=== PATIENT | female | born 1980 | race American Indian/Alaskan Native ===

== ENCOUNTER 2017-08-23 05:57 | Day surgery (SDC) | payer MEDICARE ==
[2017-08-23] MEDS ORDERED: NACL 0.9% 1000 ML 1,000 ML ONE (07:01)
[2017-08-23] MEDS ORDERED: WATER FOR IRRIG STERILE IR ONE (07:12)
[2017-08-23] MEDS ORDERED: DIPRIVAN 10 MG/ML IV ONE ×2 (07:20)
--- NOTE | 2017-08-23 07:28 | Anesthesia Day of Surgery ---
Anesthesia Day of Surgery - Day of Surgery Patient Examined: Yes Patient H&P Reviewed: Yes Patient is NPO: Yes
--- NOTE | 2017-08-23 07:28 | Anesthesia Consultation ---
Anesthesia Consult and Med Hx Date of service: 08/23/17 - Airway Anesthetic Teeth Evaluation: Good ROM Head & Neck: Adequate Mental/Hyoid Distance: Adequate Mallampati Class: Class II Intubation Access Assessment: Probably Good - Pre-Operative Health Status ASA Pre-Surgery Classification: ASA3 Proposed Anesthetic Plan: MAC - Pulmonary Hx Smoking: No Hx Asthma: No COPD: No Hx Pneumonia: No Hx Sleep Apnea: Yes - Cardiovascular System Hx Hypertension: No - Central Nervous System Hx Seizures: No Hx Psychiatric Problems: Yes (depression) - Endocrine Hx Renal Disease: No Hx End Stage Renal Disease: No Hx Hypothyroidism: No Hx Hyperthyroidism: No - Hematic Hx Anemia: No Hx Sickle Cell Disease: No - Other Systems Hx Alcohol Use: No Hx Cancer: No Hx Obesity: Yes (BMI 60.7)
[2017-08-23] MEDS ORDERED: HURRICAINE ONE 20% TOPICAL SPRAY MM ×2 (07:32→07:33)
--- NOTE | 2017-08-23 07:46 | Discharge Summary ---
Providers - Providers Attending physician: CONCEPCION LEONARD Primary care physician: ELIZABET LINDO Hospitalization Procedures: EGD Hospital course: 37 y.o. F presented to endoscopy for EGD. She tolerated the procedure well. Disposition: - TO HOME OR SELFCARE Core Measure Documentation - Palliative Care Palliative Care/ Comfort Measures: Not Applicable - Core Measures Any of the following diagnoses?: none Exam - Physical Exam Narrative exam: no changes from prior - Constitutional Vitals: Temp Pulse Resp BP Pulse Ox 98.2 F 85 15 135/80 97 08/23/17 07:30 08/23/17 07:30 08/23/17 07:30 08/23/17 07:30 08/23/17 07:30 Plan Activity: no restrictions Diet: other (2 week protein diet, 2 days prior to surgery clears) Follow up with: ELIZABET LINDO MD [Primary Care Provider] - 7 Days
--- NOTE | 2017-08-23 07:57 | Operative Report ---
Operative Report Operative Report: OPERATIVE REPORT - EGD DATE 08/23/17 SURGERY: Upper endoscopy. SURGEON: Kayla Mckeon M.D. PRE OP DX: dyspepsia POST OP DX: gastritis, hiatal hernia TYPE OF ANESTHESIA: MAC. ESTIMATED BLOOD LOSS: None. COMPLICATIONS: None. SPECIMENS REMOVED: None. FINDINGS: 1. Small hiatal hernia. 2. antral gastritis INDICATIONS:INDICATION FOR PROCEDURE: Patient is a 46-year-old female with a long history of morbid obesity. She is planned to have a weight loss procedure and is here for preoperative planning EGD. PROCEDURE DETAILS: After consent was reviewed, patient was taken back to the operating room where patient was placed in the left lateral decubitus position and a bite block was placed in the mouth. After a time-out was called, MAC anesthesia was initiated. I then passed the endoscope into her oropharynx, into her esophagus, visualized the entire esophagus, which was all within normal limits. I then visualized the stomach and the first portion of the duodenum and there were no abnormalities I could clearly visualize, with the exception of mild antral gastritis. I then retroflexed the scope in the stomach and visualized the hiatus and I could see a small hiatal hernia. I then desufflated the stomach and removed the endoscope. Patient tolerated procedure well and was transferred to recovery room in good and stable condition.
[2017-08-23] MEDS ORDERED: NACL 0.9% 1000 ML 1,000 ML IV SCH (08:00)
--- NOTE | 2017-08-23 08:01 | Post Anesthesia Evaluation ---
- Post Anesthesia Evaluation Patient Participated: Yes Airway Patent: Yes Stable Respiratory Function: Yes Nausea/Vomiting: No Temp > 96.8F: Yes Pain Manageable: Yes Adequeate Hydration: Yes Anesthesia Complications: No Block Receding Appropriately: Not Applicable Patient on Ventilator: No
[2017-08-23 08:22] VITALS: BP 116/60
[2017-08-23] MEDS ORDERED: XYLOCAINE MPF 2% ONE (10:00)
== END 2017-08-23 05:58 | disposition home or self-care (01) ==
LOC: GIO 05:57
PROVIDERS: ATTEND Surgery
DX: K29.70 Gastritis, unspecified, without bleeding (principal); K44.9 Diaphragmatic hernia without obstruction or gangrene; E66.01 Morbid (severe) obesity due to excess calories; E66.9 Obesity, unspecified; F32.9 Major depressive disorder, single episode, unspecified; G47.30 Sleep apnea, unspecified; Z99.89 Dependence on other enabling machines and devices; Z68.44 Body mass index [BMI] 60.0-69.9, adult
CPT/HCPCS: 43235; 81025; J2704; J7030

== ENCOUNTER 2018-08-28 11:35 | Inpatient (IN) | payer MEDICARE, OTHER ==
[2018-08-28] MEDS ORDERED: STADOL IV PRN (14:00)
[2018-08-28] MEDS ORDERED: BRETHINE SUB-Q PRN (14:00)
[2018-08-28] MEDS ORDERED: BRETHINE IVP PRN (14:00)
[2018-08-28] MEDS ORDERED: LACTATED RINGERS 1,000 ML IV SCH (14:00)
[2018-08-28] MEDS ORDERED: SUBLIMAZE IV PRN (14:00)
[2018-08-28] MEDS ORDERED: MINERAL OIL PO PRN (14:00)
[2018-08-28] MEDS ORDERED: XYLOCAINE 2% INFILTRATI ONE (15:00)
[2018-08-28] MEDS ORDERED: PITOCin/NS 30 UNIT/500ML 30 UNITS/500 ML BAG IV SCH (15:00)
[2018-08-28] MEDS ORDERED: AMPICILLIN/NS 2 GM/100 ML 2 GM/100 ML BAG IV ONE (15:00)
[2018-08-28] MEDS ORDERED: PITOCin/NS 20 UNIT/1000ML DRIP 20 UNITS/1,000 ML BAG IV SCH (15:00)
--- NOTE | 2018-08-28 16:38 | History and Physical Report ---
History of Present Illness Date of examination: 08/28/18 Date of admission: 08/28/18 Chief complaint: srom and contractions History of present illness: This is a 38 yo G 9P4 at 40+4 weeks here for leaking and contractions. She is a patient of [facility]. Unremarkable care. hx of hsv on valtrex no report of outbreaks Past History Past Medical History: no pertinent history Past Surgical History: no surgical history [employer] History: herpes Family/Genetic History: none Social history: . denies: smoking, alcohol abuse, prescription drug abuse - Obstetrical History Expected Date of Delivery: 08/24/18 Actual Gestation: 40 Week(s) 4 Day(s) : 9 Para: 4 Hx # Term Pregnancies: 4 Number of Pregnancies: 0 Spontaneous Abortions: 5 Induced : 0 Number of Living Children: 4 Medications and Allergies Allergies Allergy/AdvReac Type Severity Reaction Status Date / Time No Known Allergies Allergy Verified 08/30/17 14:00 Home Medications Medication Instructions Recorded Confirmed Last Taken Type Vilazodone HCl [Viibryd] 1 tab PO BID 08/23/17 08/28/18 08/28/18 10:00 History 1 Active Meds: Active Medications Butorphanol Tartrate (Stadol) 2 mg IV Q2H PRN PRN Reason: Pain , Severe (7-10) Ephedrine Sulfate (Ephedrine Sulfate) 10 mg IV Q2M PRN PRN Reason: Hypotension Fentanyl (Sublimaze) 100 mcg IV Q2H PRN PRN Reason: Labor Pain Last Admin: 08/28/18 16:05 Dose: 100 mcg Documented by: Lactated Ringer's (Lactated Ringers) 1,000 mls @ 125 mls/hr IV DIRECT SHARON Last Admin: 08/28/18 15:17 Dose: 125 mls/hr Documented by: Oxytocin/Sodium Chloride (Pitocin/Ns 20 Unit/1000ml Drip) 20 units in 1,000 mls @ 125 mls/hr IV DIRECT SHARON Oxytocin/Sodium Chloride (Pitocin/Ns 30 Unit/500ml) 30 units in 500 mls @ 1 mls/hr IV TITR SHARON; Protocol Last Admin: 08/28/18 16:00 Dose: 2 milliunits/min, 2 mls/hr Documented by: Mineral Oil (Mineral Oil) 30 ml PO QHS PRN PRN Reason: Constipation Terbutaline Sulfate (Brethine) 0.25 mg SUB-Q ONCE PRN PRN Reason: Hyperstimulation/Hypertonicity Terbutaline Sulfate ([place]) 0.25 mg IVP ONCE PRN PRN Reason: Hyperstimulation/Hypertonicity Review of Systems All systems: negative Genitourinary: leakage of fluid - Vital Signs Vital signs: Vital Signs Temp 99.1 F 08/28/18 15:41 Temp Pulse Resp BP Pulse Ox 99.1 F 08/28/18 15:41 - Physical Exam Breasts: Positive: normal Cardiovascular: Regular rate, Normal S1 Lungs: Positive: Clear to auscultation, Normal air movement Abdomen: Positive: normal appearance, soft, normal bowel sounds. Negative: distention, tenderness, guarding Genitourinary (Female): Positive: normal external genitalia, normal perenium Vagina: Positive: normal moisture Uterus: Positive: normal size Deep Tendon Reflex Grade: Normal +2 - Obstetrical FHR: category 1 Cervical Dilatation: 3 Cervical Effacement Percentage: 100 station: 2 Uterine Contraction Pattern: Irregular Uterine Tone Measurement Phase: Contraction Uterine Contraction Intensity: Mild Results All other labs normal. Assessment and Plan A/P Term srom IVF, labs offer epidural expect vaginal delivery
[2018-08-28 17:14] LABS: Hematocrit 33.4 % (30.3-42.9); Hemoglobin 10.8 gm/dl (10.1-14.3); Mean Platelet Volume 7.8 fl (6-12); Red Blood Count 3.8 M/mm3 (3.65-5.03); Red Cell Distribution Width 13.2 % (13.2-15.2)
[2018-08-28] MEDS ORDERED: NARCAN 2 MG/2 ML IV PRN (17:50)
--- NOTE | 2018-08-28 17:50 | Anesthesia Consultation ---
Anesthesia Consult and Med Hx Date of service: 08/28/18 - Airway Anesthetic Teeth Evaluation: Good ROM Head & Neck: Adequate Mental/Hyoid Distance: Adequate Mallampati Class: Class II Intubation Access Assessment: Probably Good - Pre-Operative Health Status ASA Pre-Surgery Classification: ASA2 Proposed Anesthetic Plan: Epidural, Spinal - Pulmonary Hx Smoking: No Hx Asthma: No COPD: No Hx Pneumonia: No Hx Sleep Apnea: Yes - Cardiovascular System Hx Hypertension: No - Central Nervous System Hx Seizures: No Hx Psychiatric Problems: No - Endocrine Hx Renal Disease: No Hx End Stage Renal Disease: No Hx Hypothyroidism: No Hx Hyperthyroidism: No - Hematic Hx Anemia: No Hx Sickle Cell Disease: No - Other Systems Hx Alcohol Use: No Hx Cancer: No Hx Obesity: Yes (BMI 36.6)
[2018-08-28] MEDS ORDERED: BENADRYL PO PRN (18:56)
[2018-08-28] MEDS ORDERED: PERCOCET 5/325 PO PRN (18:56)
[2018-08-28] MEDS ORDERED: PHENERGAN PO PRN (18:56)
[2018-08-28] MEDS ORDERED: NORCO 5/325 PO PRN (18:56)
[2018-08-28] MEDS ORDERED: DULCOLAX PR PRN (18:56)
[2018-08-28] MEDS ORDERED: PHENERGAN PR PRN (18:56)
[2018-08-28] MEDS ORDERED: TYLENOL PO PRN (18:56)
[2018-08-28] MEDS ORDERED: TUCKS PAD TP PRN (18:56)
[2018-08-28] MEDS ORDERED: MILK OF MAGNESIA PO PRN (18:56)
[2018-08-28] MEDS ORDERED: ZOFRAN IV PRN (18:56)
[2018-08-28] MEDS ORDERED: LANSINOH TP PRN (18:56)
[2018-08-28] MEDS ORDERED: SODIUM CHLORIDE FLUSH SYRINGE 10 ML IV NR (19:00)
[2018-08-28] MEDS ORDERED: fentaNYL-BUPIV 2 MCG/ML-0.125% 200 MCG/100 ML BAG EPIDURAL SCH (19:00)
--- NOTE | 2018-08-28 19:06 | Procedure Note ---
OB Delivery Note - Delivery Date of Delivery: 08/28/18 Surgeon: JB GARCIA Estimated blood loss: 300cc - Vaginal Delivery presentation: vertex Delivery position: OA Intrapartum events: meconium Delivery augmentation: rupture of membranes, pitocin Delivery monitor: external FHT, external uterine Route of delivery: Delivery placenta: spontaneous Delivery cord: nuchal cord, 3 umbilical vessels Episiotomy: none Delivery laceration: none Anesthesia: none Delivery comments: Patient was noted to c/c/ +1 and commenced to pushing a viable Male at 1836. The baby delivered after a loose nuchal cord reduced with easily delivery. The placenta delivered intact with 3 vessel cord at 1845. The apgars were 3 and 7 . Weight of baby 7 pounds 5 oz. No lacs. Patient tolerated procedure well. EBl 300 cc. Patient bonded with baby. - A at 1 minute: 3 at 5 minutes: 7 Infant Gender: Male
[2018-08-28] MEDS: PITOCin/NS 20 UNIT/1000ML DRIP 20 UNITS/1,000 ML BAG IV SCH ×2 (20:14→20:23)
[2018-08-28] MEDS: IBUPROFEN PO SCH (23:52)
[2018-08-28] MEDS: FEOSOL PO SCH (23:53)
[2018-08-28] MEDS: COLACE PO SCH (23:53)
[2018-08-29] MEDS: FEOSOL PO SCH ×3 (01:23→22:15)
[2018-08-29] MEDS: SENOKOT S PO SCH ×2 (01:43→14:52)
[2018-08-29] MEDS ORDERED: M-M-R II VACCINE SUB-Q ONE (06:00)
[2018-08-29] MEDS ORDERED: BOOSTRIX IM ONE (06:00)
[2018-08-29] MEDS: IBUPROFEN PO SCH ×4 (06:19→23:52)
[2018-08-29 07:00] LABS: Hematocrit 27.1 % (30.3-42.9); Hemoglobin 8.9 gm/dl (10.1-14.3)
--- NOTE | 2018-08-29 08:44 | Progress Note ---
Assessment and Plan - Patient Problems (1) Spontaneous vaginal delivery Current Visit: No Status: Acute Plan to address problem: routine care Subjective - Subjective Date of service: 08/29/18 Interval history: Patient without complaints. Bonding with patient. Nursing reports she dropped the baby. Infant being evaluated by peds. Patient reports: appetite normal, voiding normally, pain well controlled Objective - Vital Signs Latest vital signs: Vital Signs Temp Pulse Resp BP BP Pulse Ox 08/29/18 04:33 97.7 F 82 20 105/68 98 08/28/18 22:04 98.5 F 92 H 20 120/73 97 08/28/18 20:10 83 115/63 08/28/18 19:01 96.5 F L 104 H 20 107/55 107/55 08/28/18 15:41 99.1 F Intake and Output 08/28/18 08/29/18 08/29/18 22:59 06:59 14:59 Intake Total 37.5 Balance 37.5 Intake: IV 37.5 PITOCin/NS 20 UNIT/1000ML 37.5 DRIP 20 units In 1,000 ml @ 250 mls/hr IV DIRECT SHARON Rx#:[id number] Other: Estimated Blood Loss 300 - Exam Uterus: Present: normal, firm - Labs Labs: Abnormal lab results 08/29/18 Range/Units 05:46 Hgb 8.9 L (10.1-14.3) gm/dl Hct 27.1 L D (30.3-42.9) %
--- NOTE | 2018-08-29 08:46 | Discharge Summary ---
Providers - Providers Date of Admission: 08/28/18 11:36 Date of discharge: 08/30/18 Attending physician: JB GARCIA MD Primary care physician: JB GARCIA MD Hospitalization Reason for admission: active labor, rupture of membranes Delivery: Discharge diagnosis: IUP at term delivered Hospital course: Patient admitted with +Srom. Had a . complicated by the patient dropping the baby. Condition at discharge: Good Disposition: DC-01 TO HOME OR SELFCARE - Discharge Diagnoses (1) Spontaneous vaginal delivery Status: Acute Plan - Discharge Medications Prescriptions: Ferrous Sulfate 325 mg PO BID #60 tablet. HYDROcodone/ACETAMINOPHEN [[place] 5-325 Tablet] 1 each PO Q6H PRN #20 tablet PRN Reason: Pain, Mild (1-3) Ibuprofen [Motrin] 600 mg PO Q8H PRN #30 tablet PRN Reason: Pain Ibuprofen [Motrin] 800 mg PO Q8HR PRN #60 tablet PRN Reason: pain oxyCODONE /ACETAMINOPHEN [Percocet 5/325] 1 tab PO Q6HR PRN #30 tablet PRN Reason: Pain - Provider Discharge Summary Activity: no sex for 6 weeks, no heavy lifting 4 weeks, no strenuous exercise Diet: routine Instructions: routine Additional instructions: [] Smoking cessation referral if applicable(refer to patient education folder for contact #) [] Refer to [facility] Booklet Call your doctor immediately for: * Fever > 100.5 * Heavy vaginal bleeding ( >1 pad per hour) * Severe persistent headache * Shortness of breath * Reddened, hot, painful area to leg or breast * schedule visit in 4 weeks - Follow up plan
[2018-08-29] MEDS: COLACE PO SCH ×2 (10:02→22:15)
[2018-08-29] MEDS: PRENATAL VITAMIN PO SCH (14:52)
[2018-08-30] MEDS: SENOKOT S PO SCH ×2 (02:33→11:47)
[2018-08-30] MEDS: IBUPROFEN PO SCH ×2 (05:43→11:48)
[2018-08-30] MEDS: PRENATAL VITAMIN PO SCH (11:46)
[2018-08-30] MEDS: COLACE PO SCH (11:47)
[2018-08-30 16:36] VITALS: BP 113/73
== END 2018-08-30 12:00 | disposition home or self-care (01) | DRG 806 ==
LOC: LD 11:35 → TRG 11:35 → LD 11:36 → TRG 16:45 → OB 20:55
PROVIDERS: ADMIT Obstetrics & Gynecology; ATTEND Obstetrics & Gynecology
PROC: 10E0XZZ Delivery of Products of Conception, External Approach (ICD-10-PCS; principal; 2018-08-28)
PROC: 3E0234Z Introduction of Serum, Toxoid and Vaccine into Muscle, Percutaneous Approach (ICD-10-PCS; 2018-08-29)
DX: O77.0 Labor and delivery complicated by meconium in amniotic fluid (principal); D62 Acute posthemorrhagic anemia; Z37.0 Single live birth; Z3A.40 40 weeks gestation of pregnancy; O99.214 Obesity complicating childbirth; E66.9 Obesity, unspecified; O69.81X0 Labor and delivery complicated by cord around neck, without compression, not applicable or unspecified; Z23 Encounter for immunization
CPT/HCPCS: 36415; 85014; 85018; 85027; 86592; 86850; 86900; 86901; 88307; G0378; J0290; J2590; J3010; J7120

== ENCOUNTER 2019-01-09 10:49 | Emergency (ER) | payer MEDICARE, OTHER ==
--- NOTE | 2019-01-09 11:12 | Event Note ---
ED Screening Note ED Screening Note: pt is c/o periumbilical abdominal pain for a week increased gas lower back pain intermittent N/V no diarrhea had a BM yesterday no urinary sx PSHx of gastric bypass ([facility]-en-y) september 2016 none PMHx no daily meds no allergies to meds This initial assessment/diagnostic orders/clinical plan/treatment(s) is/are subject to change based on patients health status, clinical progression and re- assessment by fellow clinical providers in the ED. Further treatment and workup at subsequent clinical providers discretion. Patient/guardian urged not to elope from the ED as their condition may be serious if not clinically assessed and managed. Initial orders include: labs, UA, urine preg
[2019-01-09] MEDS ORDERED: TORADOL IM ONE (11:45)
[2019-01-09] MEDS ORDERED: ZOFRAN IM ONE (11:45)
[2019-01-09 12:06] LABS: HCG Qualitative,Urine Negative (Negative)
[2019-01-09 12:13] LABS: Bilirubin,Urine NEG (Negative); Blood,Urine LG (Negative); Calcium Oxalate Crystals,Urine 3+; Color,Urine Yellow (Yellow); Mucus,Urine 2+ /HPF; Urobilinogen,Urine < 2.0 mg/dL (<2.0)
[2019-01-09 12:23] LABS: RBC,Urine > 182.0 /HPF (0.0-6.0)
[2019-01-09 12:38] LABS: Alanine Aminotransferase 13 units/L (7-56); Albumin 3.4 g/dL (3.9-5); BUN/Creatinine Ratio 15; Blood Urea Nitrogen 9 mg/dL (7-17); Calcium 8.5 mg/dL (8.4-10.2); Hemolysis Index 5
[2019-01-09 12:39] LABS: Basophils % (Auto) 0.6 % (0.0-1.8); Eosinophils # (Auto) 0.2 K/mm3 (0.0-0.4); Hematocrit 29.8 % (30.3-42.9); Hemoglobin 9.6 gm/dl (10.1-14.3); Lymphocytes # (Auto) 1.5 K/mm3 (1.2-5.4); Lymphocytes % (Auto) 43.9 % (13.4-35.0); Mean Corpuscular HGB Conc 32 % (30-34); Mean Corpuscular Volume 80 fl (79-97); Monocytes # (Auto) 0.3 K/mm3 (0.0-0.8); Monocytes % (Auto) 8.1 % (0.0-7.3); Platelet Count 332 K/mm3 (140-440); Red Blood Count 3.73 M/mm3 (3.65-5.03); Red Cell Distribution Width 16.7 % (13.2-15.2)
--- NOTE | 2019-01-09 13:14 | Emergency Department Report ---
ED Abdominal Pain HPI - General Chief Complaint: Abdominal Pain Stated Complaint: ABDOMINAL/BACK PAIN Time Seen by Provider: 01/09/19 11:10 Source: patient Mode of arrival: Ambulatory Limitations: No Limitations - History of Present Illness Initial Comments: Patient is a 38-year-old female who's had some lower abdominal discomfort and some lower back pain for approximately 1 week. Patient states that she is currently on her menses however the pain is not changed before or after her menses started. Patient states her flow is normal for her. Patient is 4 months . Patient had some nausea vomiting several days ago but this is improved. She denies any diarrhea fevers chills cough cold or congestion. Patient states has been no dysuria or urinary frequency. Severity scale (0 -10): 3 - Related Data Home Medications Medication Instructions Recorded Confirmed Last Taken Vilazodone HCl [Viibryd] 1 tab PO BID 08/23/17 08/28/18 08/28/18 10:00 1 Previous Rx's Medication Instructions Recorded Last Taken Type Ferrous Sulfate 325 mg PO BID #60 tablet. 08/28/18 Unknown Rx Ibuprofen [Motrin] 600 mg PO Q8H PRN #30 tablet 08/28/18 Unknown Rx oxyCODONE /ACETAMINOPHEN [Percocet 1 tab PO Q6HR PRN #30 tablet 08/28/18 Unknown Rx 5/325] HYDROcodone/ACETAMINOPHEN [[place] 1 each PO Q6H PRN #20 tablet 08/29/18 Unknown Rx 5-325 Tablet] Ibuprofen [Motrin] 800 mg PO Q8HR PRN #60 tablet 08/29/18 Unknown Rx Ibuprofen [Motrin 600 MG tab] 600 mg PO Q8H PRN #20 tablet 01/09/19 Unknown Rx Nitrofurantoin [place]/M-Cryst 100 mg PO Q12HR #14 capsule 01/09/19 Unknown Rx [Macrobid CAP] Ondansetron [Zofran Odt] 4 mg PO Q8HR #10 tab.rapdis 01/09/19 Unknown Rx traMADol [Ultram] 50 mg PO Q6HR PRN #7 tablet 01/09/19 Unknown Rx Allergies Allergy/AdvReac Type Severity Reaction Status Date / Time No Known Allergies Allergy Verified 08/30/17 14:00 ED Review of Systems ROS: Stated complaint: ABDOMINAL/BACK PAIN Other details as noted in HPI Comment: All other systems reviewed and negative ED Past Medical Hx - Past Medical History Previous Medical History?: Yes Hx Hypertension: No Hx Congestive Heart Failure: No Hx Diabetes: No Hx Deep Vein Thrombosis: No Hx Renal Disease: No Hx Sickle Cell Disease: No Hx Seizures: No Hx Asthma: No Hx COPD: No Hx HIV: No Additional medical history: Miscarriage - Surgical History Past Surgical History?: Yes Additional Surgical History: gastric bypass - Social History Smoking Status: Never Smoker Substance Use Type: None - Medications Home Medications: Home Medications Medication Instructions Recorded Confirmed Last Taken Type Vilazodone HCl [Viibryd] 1 tab PO BID 08/23/17 08/28/18 08/28/18 10:00 History 1 Ferrous Sulfate 325 mg PO BID #60 tablet.dr 08/28/18 Unknown Rx Ibuprofen [Motrin] 600 mg PO Q8H PRN #30 tablet 08/28/18 Unknown Rx oxyCODONE /ACETAMINOPHEN [Percocet 1 tab PO Q6HR PRN #30 tablet 08/28/18 Unknown Rx 5/325] HYDROcodone/ACETAMINOPHEN [[place] 1 each PO Q6H PRN #20 tablet 08/29/18 Unknown Rx 5-325 Tablet] Ibuprofen [Motrin] 800 mg PO Q8HR PRN #60 tablet 08/29/18 Unknown Rx Ibuprofen [Motrin 600 MG tab] 600 mg PO Q8H PRN #20 tablet 01/09/19 Unknown Rx Nitrofurantoin [place]/M-Cryst 100 mg PO Q12HR #14 capsule 01/09/19 Unknown Rx [Macrobid CAP] Ondansetron [Zofran Odt] 4 mg PO Q8HR #10 tab.rapdis 01/09/19 Unknown Rx traMADol [Ultram] 50 mg PO Q6HR PRN #7 tablet 01/09/19 Unknown Rx ED Physical Exam - General Limitations: No Limitations General appearance: alert, in no apparent distress - Head Head exam: Present: atraumatic, normocephalic - Eye Eye exam: Present: normal appearance - ENT ENT exam: Present: mucous membranes moist - Neck Neck exam: Present: normal inspection - Respiratory Respiratory exam: Present: normal lung sounds bilaterally. Absent: respiratory distress, wheezes, rales, rhonchi - Cardiovascular Cardiovascular Exam: Present: regular rate, normal rhythm. Absent: systolic murmur, diastolic murmur, rubs, gallop - GI/Abdominal GI/Abdominal exam: Present: soft, tenderness (suprapubic discomfort to the umbilicus), normal bowel sounds. Absent: distended, guarding, rebound, rigid - Extremities Exam Extremities exam: Present: normal inspection - Back Exam Back exam: Present: normal inspection - Neurological Exam Neurological exam: Present: alert, oriented X3 - Psychiatric Psychiatric exam: Present: normal affect, normal mood - Skin Skin exam: Present: warm, dry, intact, normal color. Absent: rash ED Course Vital Signs 01/09/19 11:11 Temperature 98.1 F Pulse Rate 80 Respiratory 18 Rate Blood Pressure 128/75 O2 Sat by Pulse 97 Oximetry ED Medical Decision Making - Lab Data Result diagrams: 01/09/19 11:41 01/09/19 11:41 Lab Results 01/09/19 01/09/19 01/09/19 Range/Units 11:41 11:41 11:45 WBC 3.3 L (4.5-11.0) K/mm3 RBC 3.73 (3.65-5.03) M/mm3 Hgb 9.6 L (10.1-14.3) gm/dl Hct 29.8 L (30.3-42.9) % MCV 80 (79-97) fl MCH 26 L (28-32) pg MCHC 32 (30-34) % RDW 16.7 H (13.2-15.2) % Plt Count 332 (140-440) K/mm3 Lymph % (Auto) 43.9 H (13.4-35.0) % [place] % (Auto) 8.1 H (0.0-7.3) % Eos % (Auto) 6.0 H (0.0-4.3) % Baso % (Auto) 0.6 (0.0-1.8) % Lymph # 1.5 (1.2-5.4) K/mm3 [place] # 0.3 (0.0-0.8) K/mm3 Eos # 0.2 (0.0-0.4) K/mm3 Baso # 0.0 (0.0-0.1) K/mm3 Seg Neutrophils % 41.4 (40.0-70.0) % Seg Neutrophils # 1.4 L (1.8-7.7) K/mm3 Sodium 137 (137-145) mmol/L Potassium 3.7 (3.6-5.0) mmol/L Chloride 103.2 (98-107) mmol/L Carbon Dioxide 24 (22-30) mmol/L Anion Gap 14 mmol/L BUN 9 (7-17) mg/dL Creatinine 0.6 L (0.7-1.2) mg/dL Estimated GFR > 60 ml/min BUN/Creatinine Ratio 15 % Glucose 125 H (65-100) mg/dL Calcium 8.5 (8.4-10.2) mg/dL Total Bilirubin 0.20 (0.1-1.2) mg/dL AST 15 (5-40) units/L ALT 13 (7-56) units/L Alkaline Phosphatase 77 (35-129) units/L Total Protein 7.2 (6.3-8.2) g/dL Albumin 3.4 L (3.9-5) g/dL Albumin/Globulin Ratio 0.9 % Lipase 30 (13-60) units/L Urine Color Yellow (Yellow) Urine Turbidity Cloudy (Clear) Urine pH 5.0 (5.0-7.0) Ur Specific [place] 1.030 (1.003-1.030) Urine Protein 30 mg/dl (Negative) mg/dL Urine Glucose (UA) Neg (Negative) mg/dL Urine Ketones Neg (Negative) mg/dL Urine Blood Lg (Negative) Urine Nitrite Neg (Negative) Ur Reducing Substances Not Reportable Urine Bilirubin Neg (Negative) Urine Ictotest Not Reportable Urine Urobilinogen < 2.0 (<2.0) mg/dL Ur Leukocyte Esterase Mod (Negative) Urine WBC (Auto) 33.0 H (0.0-6.0) /HPF Urine RBC (Auto) > 182.0 (0.0-6.0) /HPF U Epithel Cells (Auto) 30.0 H (0-13.0) /HPF Calcium Oxalate Crystal 3+ Urine Mucus 2+ /HPF Urine HCG, Qual Negative (Negative) - Medical Decision Making Patient with a urinalysis which does show she does have a urinary tract infection. Patient be started on antibiotics and discharged home. Critical care attestation.: If time is entered above; I have spent that time in minutes in the direct care of this critically ill patient, excluding procedure time. ED Disposition Clinical Impression: Acute cystitis Qualifiers: Hematuria presence: with hematuria Qualified Code(s): N30.01 - Acute cystitis with hematuria Disposition: TO HOME OR SELFCARE Is pt being admited?: No Does the pt Need Aspirin: No Condition: Stable Instructions: Urinary Tract Infection in Women (ED) Referrals: CONNIE BERNABE MD [Primary Care Provider] - 3-5 Days Time of Disposition: 13:14
[2019-01-09 13:23] VITALS: BP 124/71
== END 2019-01-09 13:21 | disposition home or self-care (01) ==
LOC: ED 10:49
DX: N30.00 Acute cystitis without hematuria (principal); R11.2 Nausea with vomiting, unspecified; Z79.1 Long term (current) use of non-steroidal anti-inflammatories (NSAID); Z79.899 Other long term (current) drug therapy; Z98.84 Bariatric surgery status
CPT/HCPCS: 36415; 80053; 81001; 81025; 83690; 85025; 87086; 96372; 99283; J1885; J2405

== ENCOUNTER 2019-08-21 12:25 | Emergency (ER) | payer MEDICARE, OTHER ==
--- NOTE | 2019-08-21 13:36 | Emergency Department Report ---
Chief Complaint: Abdominal Pain Stated Complaint: N/V/STOMACH PAIN MSE screening note: Ms. Yun is a 39 yo female who presents with constipation and gas. Recommended OTC treatment. referred to GI ED Disposition for MSE Clinical Impression: Constipation Disposition: MED SCREENING EXAM-LEFT Condition: Stable Instructions: Constipation (ED) Referrals: JOSSUE GARCIA MD [Staff Physician] - 3-5 Days
[2019-08-21 13:46] VITALS: BP 127/69
== END 2019-08-21 13:00 | disposition left against medical advice (07) ==
LOC: ED 12:25
DX: K59.00 Constipation, unspecified (principal)
CPT/HCPCS: 99281